=== PATIENT | female | born 1945 | race Caucasian/White ===

== ENCOUNTER 2016-06-04 10:51 | Emergency (ER) | payer MEDICARE, OTHER ==
--- NOTE | 2016-06-04 11:20 | EDM.PDOC ---
ED HPI GENERAL MEDICAL PROBLEM - General Stated Complaint: RT LEG SWOLLEN -HURTING Time Seen by Provider: 06/04/16 11:20 Source of Information: Reports: Patient - History of Present Illness INITIAL COMMENTS - FREE TEXT/NARRATIVE: Patient here today with RLE swelling and pain. She does have chronic bilateral knee pain but feels this pain is different. She denies change in activity, no overuse or injury. No recent long episodes of sitting or travel. Denies back pain/numbness/tingling. Right Lower Leg Pain Score (Numeric/FACES): 10 - Related Data Allergies Allergy/AdvReac Type Severity Reaction Status Date / Time No Known Allergies Allergy Verified 06/04/16 11:47 Home Meds: Home Meds Ascorbate Calcium [Vitamin C] 500 mg PO DAILY 06/04/16 [History] Aspirin [Ecotrin] 81 mg PO DAILY 06/04/16 [History] Aspirin/Acetaminophen/Caffeine [Migraine Relief Caplet] 1 tab PO DAILY PRN 06/04 [History] B&C/FA/Zinc/Copper Oxide/Vit E [Stress B-Complex Tablet] 1 tab PO DAILY [History] Calcium Carbonate/Vitamin D3 [Caltrate 600 + D Soft Chew Tab] 1 tab PO DAILY 03/22 [History] Cholecalciferol (Vitamin D3) [Vitamin D3] 1 tab PO DAILY 06/04/16 [History] Cinnamon Bark/Chromium Picolin [Cinnamon Plus Chromium Capsule] 1 tab PO DAILY 06/04/16 [History] Glucosamine/Chondro Ribeiro A [Cosamin DS] 1 tab PO BID 06/04/16 [History] Hydrochlorothiazide 12.5 mg PO DAILY 06/04/16 [History] Hydrocodone/Acetaminophen [Hydrocodon-Acetaminophen 5-325] 1 each PO Q6H PRN # 15 tablet 06/04/16 [Rx] L Acidophil/B Lactis/B Longum [Florajen3] 1 tab PO DAILY 06/04/16 [History] Levothyroxine 125 mcg PO DAILY 06/04/16 [History] Methylcellulose [Citrucel] 500 mg PO DAILY 06/04/16 [History] Multivit-Min/FA/Lycopene/Lut [Centrum Silver Tablet] 1 tab PO DAILY 06/04/16 [ History] Omeprazole 20 mg PO DAILY PRN 06/04/16 [History] Pseudoephedrine HCl [Sudafed] 1 tab PO DAILY 06/04/16 [History] ED ROS GENERAL - Review of Systems Review Of Systems: See Below Constitutional: Reports: no symptoms Respiratory: Reports: No Symptoms Cardiovascular: Reports: No symptoms Musculoskeletal: Reports: other (Right calf pain) Skin: Reports: no symptoms Neurological: Reports: Difficulty Walking (Due to pain). Denies: Numbness, Tingling Psychiatric: Reports: No symptoms Hematologic/Lymphatic: Reports: no symptoms ED EXAM, GENERAL - Physical Exam Exam: See Below Exam Limited By: No limitations General Appearance: alert, WD/WN, no apparent distress Respiratory/Chest: no respiratory distress, lungs clear, normal breath sounds Cardiovascular: normal peripheral pulses, regular rate, rhythm Peripheral Pulses: 2+: posterior tibial (L), posterior tibial (R), dorsalis pedis (L), dorsalis pedis (R) Extremities: Kaci's Sign, leg pain, other (Right calf approximately 2" greater diameter than left. Positive kaci's sign and pain/tendernss behind knee as well. ). No: increased warmth Neurological: alert, oriented, no motor/sensory deficits Psychiatric: normal affect Skin Exam: Warm, Dry, Intact Course - Vital Signs Last Recorded V/S: Last Vital Signs Temp 98.2 F 06/04/16 11:41 Pulse 82 06/04/16 11:41 Resp 18 06/04/16 11:41 BP 110/80 06/04/16 14:48 Pulse Ox 97 06/04/16 11:41 - Orders/Labs/Meds Meds: Medications Discontinued Medications Generic Name Dose Route Start Last Admin Trade Name Tomy PRN Reason Stop Dose Admin Ketorolac Tromethamine 30 mg 06/04/16 12:40 06/04/16 13:22 Toradol IM 06/04/16 12:41 30 mg ONETIME ONE Administration - Re-Assessments/Exams Free Text/Narrative Re-Assessment/Exam: Will get LE US to assess for DVT, I do question if this could possibly be a cyst. Toradol 30mg IM for pain. 06/04/16 13:09 Bilateral popliteal cysts (5.3cm on right, 4.1cm on left), US negative for DVT. KEYONNA wrap applied to right knee for comfort. Recommend rest, ice, NSAIDs. Small qty of hydrocodone was given for breakthrough pain. She is to follow-up with orthopedics next week to discuss further treatment options. 06/04/16 17:16 Departure - Departure Time of Disposition: 14:33 Disposition: Home, Self-Care 01 Condition: good Clinical Impression: Popliteal cyst Qualifiers: Laterality: right Qualified Code(s): M71.21 - Synovial cyst of popliteal space [Beltre], right knee Prescriptions: Hydrocodone/Acetaminophen [Hydrocodon-Acetaminophen 5-325] 1 each PO Q6H PRN # 15 tablet PRN Reason: Pain Instructions: Beltre Cyst Referrals: Brina Almaguer MD [Primary Care Provider] - Forms: ED Department Discharge Additional Instructions: Rest, ice, activity as tolerated. KEYONNA wrap for comfort. Ibuprofen 400-600mg every 6 hours with food, drink lots of water while on this. Hydrocodone as needed for breakthrough, this will make you drowsy. Follow-up with orthopedics next week.
[2016-06-04] MEDS ORDERED: Ketorolac 60 MG/2 ML SDV IM ONE (12:40)
--- NOTE | 2016-06-04 14:23 | US ---
Bilateral lower extremity deep venous ultrasound: Duplex and color flow imaging was obtained of the right and left common femoral, superficial femoral, proximal greater saphenous, popliteal, posterior tibial and peroneal veins. Bilateral popliteal cysts are seen. Veins below the knee on the right side are difficult to evaluate due to patient discomfort but posterior tibial and peroneal veins show Doppler color flow and compression. Other veins on both sides show normal phasic flow, compression and augmentation. Impression: 1. Bilateral popliteal cysts. On the right side this popliteal cyst measures 5.3 cm in greatest dimension and on the left side the cyst measures 4.1 cm in greatest dimension. 2. No findings of deep venous thrombosis are seen within either the right or left lower extremities. Diagnostic code #2
[2016-06-04 14:49] VITALS: BP 110/80
== END 2016-06-04 14:51 | disposition home or self-care (01) ==
LOC: JD.ED 10:51
DX: M71.21 Synovial cyst of popliteal space [Baker], right knee (principal); Z79.82 Long term (current) use of aspirin; Z79.899 Other long term (current) drug therapy
CPT/HCPCS: 93970; 96372; 99284; J1885; 99283

== ENCOUNTER 2023-11-04 21:10 | Emergency (ER) | payer MEDICARE, OTHER ==
[2023-11-04] MEDS: Ketorolac 30 MG/ML SDV IVPUSH ONE (22:38)
[2023-11-04] MEDS: Acetaminophen/HYDROcodone 325-5 MG Tab PO ONE (23:44)
[2023-11-05 05:11] VITALS: BP 155/72; PULSE 63
== END 2023-11-04 23:48 | disposition home or self-care (01) ==
LOC: JD.ED 21:10
DX: S42.202A Unspecified fracture of upper end of left humerus, initial encounter for closed fracture (principal); Z88.6 Allergy status to analgesic agent; I10 Essential (primary) hypertension; E03.9 Hypothyroidism, unspecified; Z88.8 Allergy status to other drugs, medicaments and biological substances; Z79.82 Long term (current) use of aspirin; Z79.899 Other long term (current) drug therapy; W10.9XXA Fall (on) (from) unspecified stairs and steps, initial encounter; Y93.01 Activity, walking, marching and hiking
CPT/HCPCS: 73030; 96374; 99283; A9270; J1885; 99284